=== PATIENT | female | born 1950 | race Caucasian/White ===

== ENCOUNTER 2018-04-13 13:11 | Emergency (ER) | payer MEDICARE, BC ==
[~2018-04-13] VITALS: Ht 157.5 cm; Wt 72.7 kg
[~2018-04-13 13:11] MED LIST: HYDROCODONE-APA1 TAB PO; METOPROLOL TART50 MG PO; OMEPRAZOLE20 M1 PO
[2018-04-13 13:19] VITALS: Ht 157.5 cm; Wt 72.7 kg
[2018-04-13] MEDS ORDERED: ROBAXIN-750750 MG PO (14:31)
[2018-04-13] MEDS ORDERED: VOLTAREN75 MG PO (14:31)
[2018-04-13 15:20] VITALS: BP 123/73
== END 2018-04-13 15:27 | disposition home or self-care (01) ==
LOC: D.ER 13:11
DX: S16.1XXA Strain of muscle, fascia and tendon at neck level, initial encounter (principal); X58.XXXA Exposure to other specified factors, initial encounter; Y93.89 Activity, other specified; Y92.89 Other specified places as the place of occurrence of the external cause